=== PATIENT | female | born 1980 | race Caucasian/White ===

== ENCOUNTER 2017-12-14 09:38 | Emergency (ER) | payer OTHER ==
[~2017-12-14] VITALS: Ht 170.2 cm; Wt 63.5 kg
[2017-12-14 09:40] VITALS: BP 128/78
[2017-12-14] MEDS ORDERED: HEATHER0.35 MG PO (09:42)
[2017-12-14] MEDS ORDERED: BACTRIM DS TAB1 EACH PO (09:43)
[2017-12-14] MEDS ORDERED: NORCO 5-325 TA1 EACH PO (10:27)
== END 2017-12-14 10:38 | disposition home or self-care (01) ==
LOC: ER 09:38
DX: L02.211 Cutaneous abscess of abdominal wall (principal)